=== PATIENT | male | born 1970 | race Caucasian/White ===

== ENCOUNTER → 2017-11-05 | Outpatient (CLI) | payer OTHER | LOC: LAB 11:58 → LAB SHORT 11:58 | DX: L60.2 Onychogryphosis (principal); B35.1 Tinea unguium | CPT/HCPCS: 87102 ==

== ENCOUNTER 2022-08-17 20:32 | Emergency (ER) | payer OTHER ==
[~2022-08-17] VITALS: Ht 177.8 cm; Wt 90.7 kg
[~2022-08-17 20:32] MED LIST: Norco 5-325 Ta1 EACH PO
[2022-08-18] MEDS ORDERED: MORP15ER PO (00:36)
[2022-08-18 00:52] VITALS: BP 185/11
== END 2022-08-18 00:53 | disposition home or self-care (01) ==
LOC: ER 20:32
DX: T23.221D Burn of second degree of single right finger (nail) except thumb, subsequent encounter (principal); T23.202D Burn of second degree of left hand, unspecified site, subsequent encounter; T23.201D Burn of second degree of right hand, unspecified site, subsequent encounter; X08.8XXD Exposure to other specified smoke, fire and flames, subsequent encounter; F17.210 Nicotine dependence, cigarettes, uncomplicated
CPT/HCPCS: A9270; J1885

== ENCOUNTER 2022-11-30 05:07 | Inpatient (IN) | payer OTHER ==
[~2022-11-30] VITALS: Ht 177.8 cm; Wt 93.9 kg
[~2022-11-30 05:07] MED LIST changes: +MORP15ER PO
[2022-11-30 05:32] LABS: BASOPHILS ABSOLUTE AUTO 0.07 K/mm3 (0.00-0.23); BASOPHILS PERCENT AUTO 1 % (0-2); EOSINOPHILS PERCENT AUTO 2 % (0-6); Hematocrit 46.5 % (37.0-53.0); IMMATURE GRAN ABSOLUTE AUTO 0.04 K/mm3 (0.00-0.10); IMMATURE GRAN PERCENT AUTO 0 % (0-1); LYMPHOCYTES ABSOLUTE AUTO 3.21 K/mm3 (0.84-5.20); LYMPHOCYTES PERCENT AUTO 24 % (21-46); MONOCYTES ABSOLUTE AUTO 0.71 K/mm3 (0.16-1.47); MONOCYTES PERCENT AUTO 5 % (4-13); Mean Corpuscular HGB 30.8 pg (26.0-34.0); Mean Corpuscular HGB Conc 34.4 g/dL (31.5-36.5); Mean Corpuscular Volume 90 fL (80-100); Mean Platelet Volume 10.5 fL (9.1-12.4); NEUTROPHILS ABSOLUTE AUTO 9.19 K/mm3 (1.96-9.15); NEUTROPHILS PERCENT AUTO 69 % (41-73); Platelet Count 243 K/mm3 (150-400); RDW Coefficient Variation 12.5 % (11.7-14.2); RDW Standard Deviation 41.1 fL (35.1-46.3); Red Blood Cell Count 5.19 M/mm3 (4.30-5.90); White Blood Cell Count 13.42 K/mm3 (4.00-11.30)
[2022-11-30 05:50] LABS: Albumin, Blood 3.2 g/dL (3.4-5.0); Bilirubin, Total 0.6 mg/dL (0.1-1.0); Bun/Creatinine Ratio 15.2 (12.0-20.0); Calcium, Blood 8.8 mg/dL (8.5-10.1); Creatinine, Blood 0.86 mg/dL (0.60-1.20); Globulin, Blood 3.1 g/dL (2.2-4.0); Total Protein, Blood 6.3 g/dL (6.4-8.2)
[2022-11-30 10:24] LABS: Anti-Xa UFH, PHA Monitoring <0.10 IU/mL; Prothrombin Time Results 11.5 Sec (9.7-11.5)
[2022-11-30 12:10] LABS: U Amphetamine Screen DETECTED; U Barbituate Screen Not Detected; U Benzodiazapine Screen Not Detected; U Buprenorphine Screen Not Detected; U Cannabinoids Screen Not Detected; U Cocaine Screen Not Detected; U Methadone Screen Not Detected; U Methamphetamine Screen DETECTED; U Opiates Screen Not Detected; U Oxycodone Screen Not Detected; U Phencyclidine Screen Not Detected; U Propoxyphene Screen Not Detected
[2022-11-30 13:48] VITALS: BP 152/136
[2022-11-30 14:00] VITALS: BP 162/107
--- NOTE | 2022-11-30 14:06 | NUR ---
LATE ENTRY/ER ADMIT 1000: RECEIVED REPORT FROM BRIAN DOWNS. 1010: RECEIVED PT FROM ER VIA [facility]. PT PLACED SELF IN BED. PUT ON TELE/MONITOR. VSS. A&O X 4. PT GROGGY, IS AROUSABLE YET UNABLE TO REMAIN AWAKE TO ANSWER ADMIT QUESTIONS. HEP GTT STARTED, IV LASIX GIVEN, NICOTENE PATCH APPLIED PER MD ORDERS. GOOD EFFECT FROM LASIX. 1405: IV LOPRESSOR GIVEN FOR SUSTAINED HR >120. HE DOWN TO 80'S AFTER GIVEN.
[2022-11-30 14:26] VITALS: BP 136/100
[2022-11-30 16:34] VITALS: BP 149/115
--- NOTE | 2022-11-30 18:33 | NUR ---
SHIFT SUMMARY PT HAS RESTED MAJORITY OF SHIFT WITH EYES CLOSED, RESP EVEN THOUGH SOMEWHAT RAPID. O2 2 L'S VIA N/C, SATS REMAIN >90%. PT AROUSABLE THOUGH UNABLE TO REMAIN AWAKE. TOX SCREEN CAME BACK + FOR METH. WAS ABLE TO WAKE UP FOR DINNER, SAT ON EDGE OF BED TO EAT. APPETITE IS GOOD. ECHO WAS DONE TODAY. NO REPORT ON CHART OF YET. HEP GTT INFUSING PER EMAR. PT REMAINS IN A.FLUTTER WITH HR 90-100'S. PT REPORTS HE WANTS TO SNEAK AWAY TO GO SMOKE. PT EDUCATED ON IGNITION SOURCES AND RISK OF FIRE & INJURY WHEN O2 IS IN USE. PT REPORTS UNDERSTANDING. NICOTENE PATCH APPLIED EARLIER TODAY. PT'S MOM AND PT'S SON VISITING AT BEDSIDE. CALL LIGHT WITHIN REACH, BED IN LOW POSITION.
[2022-11-30 20:39] VITALS: BP 159/98
[2022-11-30 23:59] VITALS: BP 169/123
[2022-12-01 00:20] VITALS: BP 143/99
[2022-12-01 00:28] LABS: BASOPHILS PERCENT AUTO 1 % (0-2); EOSINOPHILS ABSOLUTE AUTO 0.26 K/mm3 (0.00-0.68); EOSINOPHILS PERCENT AUTO 2 % (0-6); Hematocrit 44.5 % (37.0-53.0); Hemoglobin 15.2 g/dL (13.5-17.5); IMMATURE GRAN ABSOLUTE AUTO 0.02 K/mm3 (0.00-0.10); IMMATURE GRAN PERCENT AUTO 0 % (0-1); LYMPHOCYTES ABSOLUTE AUTO 4.34 K/mm3 (0.84-5.20); LYMPHOCYTES PERCENT AUTO 35 % (21-46); MONOCYTES ABSOLUTE AUTO 0.64 K/mm3 (0.16-1.47); MONOCYTES PERCENT AUTO 5 % (4-13); Mean Corpuscular HGB 30.6 pg (26.0-34.0); Mean Corpuscular HGB Conc 34.2 g/dL (31.5-36.5); Mean Corpuscular Volume 90 fL (80-100); Mean Platelet Volume 10.6 fL (9.1-12.4); NEUTROPHILS ABSOLUTE AUTO 7.06 K/mm3 (1.96-9.15); NEUTROPHILS PERCENT AUTO 57 % (41-73); Platelet Count 236 K/mm3 (150-400); RDW Coefficient Variation 12.8 % (11.7-14.2); RDW Standard Deviation 41.6 fL (35.1-46.3); Red Blood Cell Count 4.97 M/mm3 (4.30-5.90); White Blood Cell Count 12.42 K/mm3 (4.00-11.30)
[2022-12-01 00:45] LABS: Anion Gap 5 mmol/L (6-16); Blood Urea Nitrogen 20 mg/dL (8-24); Bun/Creatinine Ratio 20.2 (12.0-20.0); CO2, Blood 29 mmol/L (21-32); Chloride, Blood 104 mmol/L (98-108); Creatinine, Blood 0.99 mg/dL (0.60-1.20); Glomerular Filtration Rate 92 (60-); Glucose, Blood 176 mg/dL (70-99); Phosphorus, Blood 3.9 mg/dL (2.5-4.9); Potassium, Blood 3.8 mmol/L (3.5-5.5); Sodium, Blood 138 mmol/L (136-145)
--- NOTE | 2022-12-01 01:13 | NUR ---
INCREASED SOB PT COMPLAINING OF SOB THIS AM, PT HAS FINE CRACKLES IN LLL, WITH NO CHANGE SINCE PREVIOUS ASSESSMENT. PT SATS ABOVE 92 % ON RA, PT WEARS 2L O2 AT NOC PRN. PLACED O2 AND INCREASED TO 3L TO SEE IF THAT WOULD HELP MAKE BREATHING EASIER. DESPITE THESE INTERVENTIONS PT CONTINUES TO COMPLAIN OF SOB, AND IS SITTING UP ON THE EDGE OF THE BED. PT RECEIVED 40 MG OF LASIKS IN THE AM, AND HAS A TOTAL URINE OUTPUT OF OVER 3000. DR. CAMACHO CALLED AND NOTIFIED OF INCREASED SOB, 10 MG IV LASIKS ORDERED. [employer]IM[employer]U SHEPPARD.
[2022-12-01 03:40] VITALS: BP 130/114
--- NOTE | 2022-12-01 06:05 | NUR ---
SHIFT SUMMARY PT HAS RESTED OFF AND ON T/O THE SHIFT, PT REPORTS DIFFICULTY SLEEPING D/T SOB. PROIVDER NOTIFIED OF PT COMPLAINTS OF SOB THIS SHIFT AND 1X ORDER OF 10MG IV LASIKS GIVEN. PT HAS BEEN VOIDING ADEQUATELY. PT WEARS 2L O2 OFF AND ON FOR SOB, INCREASED TO 3L FOR ADDITIONAL COMFORT BUT PT REPORTS THAT HE PREFERS O2 AT 2L. PT TAKES OXYGEN OFF FREQUENTLY. SATS WNL ON RA. HEPARIN GTT INFUSING. A LITTLE AFTER MIDNIGHT PT HR TRENDED ABOVE 120 AND HE WAS SUSTAINING, MEDICATED WITH IV LOPRESSOR. PT HYPERTENSIVE, LOPRESSOR LOWERED BP ALSO. NO OTHER CHANGES TO REPORT. BED IN LOWEST POSITON, CALL LIGHT WITHIIN REACH.
[2022-12-01 08:48] VITALS: BP 156/125
[2022-12-01 11:09] VITALS: BP 136/98
[2022-12-01 16:51] VITALS: BP 137/100
[2022-12-01 20:45] VITALS: BP 146/106
[2022-12-02 00:12] VITALS: BP 145/112
[2022-12-02 03:57] LABS: BASOPHILS ABSOLUTE AUTO 0.06 K/mm3 (0.00-0.23); BASOPHILS PERCENT AUTO 1 % (0-2); EOSINOPHILS ABSOLUTE AUTO 0.24 K/mm3 (0.00-0.68); EOSINOPHILS PERCENT AUTO 2 % (0-6); Hematocrit 44.8 % (37.0-53.0); Hemoglobin 15.1 g/dL (13.5-17.5); IMMATURE GRAN ABSOLUTE AUTO 0.03 K/mm3 (0.00-0.10); IMMATURE GRAN PERCENT AUTO 0 % (0-1); LYMPHOCYTES ABSOLUTE AUTO 3.71 K/mm3 (0.84-5.20); LYMPHOCYTES PERCENT AUTO 30 % (21-46); MONOCYTES ABSOLUTE AUTO 0.62 K/mm3 (0.16-1.47); MONOCYTES PERCENT AUTO 5 % (4-13); Mean Corpuscular HGB 30.4 pg (26.0-34.0); Mean Corpuscular HGB Conc 33.7 g/dL (31.5-36.5); Mean Corpuscular Volume 90 fL (80-100); Mean Platelet Volume 11.1 fL (9.1-12.4); NEUTROPHILS ABSOLUTE AUTO 7.61 K/mm3 (1.96-9.15); NEUTROPHILS PERCENT AUTO 62 % (41-73); Platelet Count 212 K/mm3 (150-400); RDW Coefficient Variation 12.7 % (11.7-14.2); Red Blood Cell Count 4.96 M/mm3 (4.30-5.90); White Blood Cell Count 12.27 K/mm3 (4.00-11.30)
[2022-12-02 04:14] LABS: Albumin, Blood 2.9 g/dL (3.4-5.0); Anion Gap 4 mmol/L (6-16); Blood Urea Nitrogen 22 mg/dL (8-24); Bun/Creatinine Ratio 25.7 (12.0-20.0); CO2, Blood 30 mmol/L (21-32); Calcium, Blood 8.9 mg/dL (8.5-10.1); Chloride, Blood 102 mmol/L (98-108); Creatinine, Blood 0.86 mg/dL (0.60-1.20); Glomerular Filtration Rate 105 (60-); Glucose, Blood 295 mg/dL (70-99); Phosphorus, Blood 3.8 mg/dL (2.5-4.9); Potassium, Blood 3.8 mmol/L (3.5-5.5); Sodium, Blood 136 mmol/L (136-145)
[2022-12-02 04:30] VITALS: BP 139/95
--- NOTE | 2022-12-02 06:13 | NUR ---
End of shift note. Pt has been resting much of this shift. Pt reports that he has not slept well but each time RN checks on Pt he seems to be comfortable and resting. VSS. Hep gtt infusing. has been at bedside all shift. Pt is able to make needs known, call light is within reach.
[2022-12-02 08:28] VITALS: BP 163/115
[2022-12-02 11:49] VITALS: BP 147/106
[2022-12-02] MEDS ORDERED: ELIQUIS5 M2 PO (14:13)
[2022-12-02] MEDS ORDERED: BASAGLAR K100 UNIT/1 SC (14:14)
[2022-12-02] MEDS ORDERED: LISI5 PO (14:14)
[2022-12-02] MEDS ORDERED: TOPROL XL50 M1 PO (14:15)
[2022-12-02] MEDS ORDERED: NICODERM CQ TOP (14:16)
[2022-12-02] MEDS ORDERED: METF500 PO (14:16)
[2022-12-02] MEDS ORDERED: FURO40 PO (14:16)
--- NOTE | 2022-12-02 15:35 | NUR ---
UPDATE DISCHARGE ORDERS IN PLACE. DC INSTRUCTIONS GONE OVER WITH PT. PT EDUCATED ON ALL NEW MEDICATIONS AND DIAGNOSIS. PT PROVIDED EXTENSIVE DIABETIC EDUCATION AND HOW TO CHECK BLOOD SUGAR ALONG WITH ADMINISTER INSULIN. SMOKING CESSATION PROVIDED. ALL QUESTIONS ANSWERED. BOTH IV REMOVED WITHOUT COMPLICATIONS. SPOUSE AT BEDSIDE DURING EDUCATION. PT TAKEN OUT BY TRANG
== END 2022-12-02 15:28 | disposition home or self-care (01) | DRG 309 ==
LOC: ER 05:07 → PCU 09:15
PROVIDERS: Emergency Medicine; ADMIT Family Medicine
DX: I48.92 Unspecified atrial flutter (principal); I24.8 Other forms of acute ischemic heart disease; I50.20 Unspecified systolic (congestive) heart failure; I42.7 Cardiomyopathy due to drug and external agent; I11.0 Hypertensive heart disease with heart failure; E66.9 Obesity, unspecified; D72.828 Other elevated white blood cell count; T43.621A Poisoning by amphetamines, accidental (unintentional), initial encounter; F17.210 Nicotine dependence, cigarettes, uncomplicated; F15.10 Other stimulant abuse, uncomplicated; E11.65 Type 2 diabetes mellitus with hyperglycemia; X58.XXXA Exposure to other specified factors, initial encounter; Z79.891 Long term (current) use of opiate analgesic; Z98.890 Other specified postprocedural states; Z68.29 Body mass index [BMI] 29.0-29.9, adult; Z71.6 Tobacco abuse counseling
CPT/HCPCS: 36415; 71046; 71260; 78452; 80053; 80069; 82947; 83036; 83735; 83880; 84443; 84484; 85025; 85520; 85610; 85730; 93005; 93010; 93017; 94760; 94762; 96374-59; 96376-59; 99285-25; A9270; A9500; C8929; J0280; J1644; J1815; J1940; J2785; Q9957; Q9967

== ENCOUNTER 2023-01-28 08:48 | Day surgery (SDC) | payer OTHER ==
[~2023-01-28] VITALS: Ht 177.8 cm; Wt 79.5 kg
[2023-01-28] VITALS (17 sets, daily range): BP systolic 122–147; BP diastolic 82–103
[~2023-01-28 08:48] MED LIST changes: +BASAGLAR K100 UNIT/1 SC; +ELIQUIS5 M2 PO; +FURO40 PO; +LISI5 PO; +METF500 PO; +NICODERM CQ TOP; +TOPROL XL50 M1 PO
[2023-01-28] MEDS ORDERED: ATOR40TA PO (10:05)
[2023-01-28] MEDS ORDERED: ASCO500 PO (10:06)
[2023-01-28] MEDS ORDERED: Vitamin D1000 UNI1 PO (10:06)
--- NOTE | 2023-01-28 11:01 | NUR ---
PATIENT BROUGHT TO RECOVERY ROOM TO COMPLETE RECOVERY TIME. TRANSFERED ON THE MONITOR AND BED. FAMILY AT THE BEDSIDE, PATIENT WAKES TO VERBAL COMMANDS. VVS. NO PAIN NOTED FROM THE PATIENT.
--- NOTE | 2023-01-28 11:33 | NUR ---
PATIENT FULLY AWAKE, DR. GRIFFITH CAME TO THE BEDSIDE AND SPOKE WITH THE FAMILY, WITH PAITENT WILL FOLLOW UP IN THE OFFICE. POST EKG PERFORMED AND VERIFIED BY DR. GRIFFITH. PIV REMOVED AND PRESSURE DRESSING APPLIED. CATH TIP INTACT. REMOVED FROM THE MONITOR AND PATIENT DRESSED. ALL BELONGINGS GATHERED. REVIEWED DISCHARGE INSTRUCTIONS WITH THE PATIENT AND FAMILY. ALL QUESTIONS ANSWERED.
--- NOTE | 2023-01-28 12:08 | NUR ---
1145 PATIENT DISCHARGED HOME VIA WHEELCHAIR.
== END 2023-01-28 11:45 | disposition home or self-care (01) ==
LOC: MHTC 08:48
DX: I48.91 Unspecified atrial fibrillation (principal); I11.0 Hypertensive heart disease with heart failure; I50.812 Chronic right heart failure; E11.9 Type 2 diabetes mellitus without complications; Z79.01 Long term (current) use of anticoagulants; Z79.84 Long term (current) use of oral hypoglycemic drugs
CPT/HCPCS: 92960; 93005; 93010; 99152; J1200; J2250; J2310; J3010; J7030

== ENCOUNTER 2024-05-26 21:58 | Emergency (ER) | payer OTHER ==
[~2024-05-26] VITALS: Ht 177.8 cm; Wt 81.7 kg
[~2024-05-26 21:58] MED LIST changes: +ASCO500 PO; +ATOR40TA PO; +Vitamin D1000 UNI1 PO
[2024-05-26 22:26] LABS: BASOPHILS ABSOLUTE AUTO 0.06 K/mm3 (0.00-0.23); BASOPHILS PERCENT AUTO 1 % (0-2); EOSINOPHILS PERCENT AUTO 1 % (0-6); Hematocrit 41.9 % (37.0-53.0); Hemoglobin 14.3 g/dL (13.5-17.5); IMMATURE GRAN ABSOLUTE AUTO 0.02 K/mm3 (0.00-0.10); IMMATURE GRAN PERCENT AUTO 0 % (0-1); LYMPHOCYTES PERCENT AUTO 20 % (21-46); MONOCYTES ABSOLUTE AUTO 0.76 K/mm3 (0.16-1.47); MONOCYTES PERCENT AUTO 9 % (4-13); Mean Corpuscular HGB 30.8 pg (26.0-34.0); Mean Corpuscular HGB Conc 34.1 g/dL (31.5-36.5); Mean Corpuscular Volume 90 fL (80-100); Mean Platelet Volume 10.3 fL (9.1-12.4); NEUTROPHILS ABSOLUTE AUTO 5.95 K/mm3 (1.96-9.15); NEUTROPHILS PERCENT AUTO 69 % (41-73); Platelet Count 222 K/mm3 (150-400); RDW Coefficient Variation 12.6 % (11.7-14.2); RDW Standard Deviation 41.4 fL (35.1-46.3); Red Blood Cell Count 4.65 M/mm3 (4.30-5.90); White Blood Cell Count 8.59 K/mm3 (4.00-11.30)
[2024-05-26 22:55] LABS: International Normalized Ratio 1.09; Prothrombin Time Results 11.6 Sec (9.7-11.5)
[2024-05-26 22:57] LABS: Albumin, Blood 3.1 g/dL (3.4-5.0); Albumin/Globulin Ratio 0.9 (0.8-1.8); Bilirubin, Total 0.7 mg/dL (0.1-1.0); Bun/Creatinine Ratio 13.8 (12.0-20.0); Calcium, Blood 9.1 mg/dL (8.5-10.1); Creatinine, Blood 0.8 mg/dL (0.60-1.20); Globulin, Blood 3.5 g/dL (2.2-4.0); Total Protein, Blood 6.6 g/dL (6.4-8.2)
[2024-05-26] MEDS ORDERED: CefTRIAXone Sodium 1,000 MG in NS 50 ML IV ONE (23:10)
[2024-05-26] MEDS ORDERED: Azithromycin 500 MG in NS 250 ML IV ONE (23:10)
[2024-05-26] MEDS ORDERED: Ketorolac Tromethamine 30mg Vial IV ONE (23:10)
[2024-05-26] MEDS ORDERED: Acetaminophen 500 MG Tab PO ONE (23:10)
[2024-05-26] MEDS ORDERED: AZIT250 PO (23:37)
[2024-05-26 23:45] VITALS: BP 140/80
== END 2024-05-27 01:20 | disposition home or self-care (01) ==
LOC: ER 21:58
PROVIDERS: Emergency Medicine
DX: J18.9 Pneumonia, unspecified organism (principal); R07.89 Other chest pain; R73.9 Hyperglycemia, unspecified; F17.210 Nicotine dependence, cigarettes, uncomplicated; Z79.02 Long term (current) use of antithrombotics/antiplatelets; Z79.899 Other long term (current) drug therapy; Z79.84 Long term (current) use of oral hypoglycemic drugs; Z79.01 Long term (current) use of anticoagulants; Z79.4 Long term (current) use of insulin
CPT/HCPCS: 71046; 80053; 83690; 83880; 84484; 85025; 85610; 85730; 93005; 93010; 96365; 96366; 96368; 96375; 99285-25; A9270; J0456; J0696; J1885; J7050

== ENCOUNTER 2024-05-28 16:34 | Observation (INO) | payer OTHER ==
[~2024-05-28] VITALS: Ht 177.8 cm; Wt 81.7 kg
[~2024-05-28 16:34] MED LIST changes: +AZIT250 PO
[2024-05-28] MEDS ORDERED: Aspirin 325 MG Tab PO ONE (16:45)
[2024-05-28 17:03] LABS: BASOPHILS ABSOLUTE AUTO 0.06 K/mm3 (0.00-0.23); BASOPHILS PERCENT AUTO 1 % (0-2); EOSINOPHILS ABSOLUTE AUTO 0.14 K/mm3 (0.00-0.68); EOSINOPHILS PERCENT AUTO 2 % (0-6); Hematocrit 43.4 % (37.0-53.0); Hemoglobin 15.1 g/dL (13.5-17.5); IMMATURE GRAN ABSOLUTE AUTO 0.02 K/mm3 (0.00-0.10); IMMATURE GRAN PERCENT AUTO 0 % (0-1); LYMPHOCYTES ABSOLUTE AUTO 1.25 K/mm3 (0.84-5.20); LYMPHOCYTES PERCENT AUTO 15 % (21-46); MONOCYTES ABSOLUTE AUTO 0.68 K/mm3 (0.16-1.47); MONOCYTES PERCENT AUTO 8 % (4-13); Mean Corpuscular HGB 31.1 pg (26.0-34.0); Mean Corpuscular HGB Conc 34.8 g/dL (31.5-36.5); Mean Corpuscular Volume 90 fL (80-100); NEUTROPHILS ABSOLUTE AUTO 6.41 K/mm3 (1.96-9.15); NEUTROPHILS PERCENT AUTO 75 % (41-73); Platelet Count 243 K/mm3 (150-400); RDW Coefficient Variation 12.4 % (11.7-14.2); RDW Standard Deviation 40.9 fL (35.1-46.3); Red Blood Cell Count 4.85 M/mm3 (4.30-5.90); White Blood Cell Count 8.56 K/mm3 (4.00-11.30)
[2024-05-28 17:23] LABS: Albumin, Blood 3.1 g/dL (3.4-5.0); Albumin/Globulin Ratio 0.8 (0.8-1.8); Bilirubin, Total 0.9 mg/dL (0.1-1.0); Bun/Creatinine Ratio 22.9 (12.0-20.0); Creatinine, Blood 0.61 mg/dL (0.60-1.20); Globulin, Blood 3.8 g/dL (2.2-4.0); Potassium, Blood 4.1 mmol/L (3.5-5.5); Total Protein, Blood 6.9 g/dL (6.4-8.2)
[2024-05-28] MEDS ORDERED: Acetaminophen 325 MG TABLET PO PRN (22:00)
[2024-05-28] MEDS ORDERED: FLU VACC TS2024-25(6MOS UP)/PF 45 MCG/0.5 ML SYRINGE IM ONE (22:00)
[2024-05-28] MEDS ORDERED: Ondansetron 4 MG TAB PO PRN (22:05)
[2024-05-28] MEDS ORDERED: Nitroglycerin 0.4 MG SUBL SL PRN (22:05)
[2024-05-28] MEDS ORDERED: Nicotine 14 MG PATCH TOP PRN (22:05)
[2024-05-28] MEDS ORDERED: Morphine Sulfate 4 MG/1 ML Injection IV PRN (22:25)
[2024-05-28] MEDS ORDERED: TraZODone HCl 50 MG Tab PO PRN (22:25)
[2024-05-28] MEDS ORDERED: Insulin Glargine-Yfgn 100 Unit/mL 3 ML SYR SC SCH (23:00)
[2024-05-28 23:44] VITALS: BP 171/112
[2024-05-28 23:48] LABS: Influenza A, PCR NEGATIVE (NEGATIVE); Influenza B, PCR NEGATIVE (NEGATIVE); Resp Syncytial Virus, PCR NEGATIVE (NEGATIVE); SARS-Cov-2 (COVID-19) PCR, MMC NEGATIVE (NEGATIVE)
[2024-05-29 00:35] VITALS: BP 184/134
[2024-05-29 00:40] VITALS: BP 153/113
[2024-05-29] MEDS ORDERED: HydrALAZINE HCl 20 MG / ML 1ML Vial IV PRN (00:45)
[2024-05-29 02:06] VITALS: BP 186/116
[2024-05-29] MEDS ORDERED: Metoprolol Tartrate 1 MG/ML 5 ML VIAL IV ONE (02:15)
[2024-05-29 03:17] VITALS: BP 155/90
[2024-05-29 06:50] LABS: BASOPHILS ABSOLUTE AUTO 0.05 K/mm3 (0.00-0.23); BASOPHILS PERCENT AUTO 1 % (0-2); EOSINOPHILS ABSOLUTE AUTO 0.16 K/mm3 (0.00-0.68); EOSINOPHILS PERCENT AUTO 2 % (0-6); Hematocrit 44.3 % (37.0-53.0); Hemoglobin 15.2 g/dL (13.5-17.5); IMMATURE GRAN ABSOLUTE AUTO 0.02 K/mm3 (0.00-0.10); IMMATURE GRAN PERCENT AUTO 0 % (0-1); LYMPHOCYTES PERCENT AUTO 21 % (21-46); MONOCYTES ABSOLUTE AUTO 0.83 K/mm3 (0.16-1.47); MONOCYTES PERCENT AUTO 10 % (4-13); Mean Corpuscular HGB 30.9 pg (26.0-34.0); Mean Corpuscular HGB Conc 34.3 g/dL (31.5-36.5); Mean Corpuscular Volume 90 fL (80-100); NEUTROPHILS ABSOLUTE AUTO 5.71 K/mm3 (1.96-9.15); NEUTROPHILS PERCENT AUTO 67 % (41-73); Platelet Count 242 K/mm3 (150-400); RDW Coefficient Variation 12.2 % (11.7-14.2); RDW Standard Deviation 40.2 fL (35.1-46.3); Red Blood Cell Count 4.92 M/mm3 (4.30-5.90); White Blood Cell Count 8.57 K/mm3 (4.00-11.30)
[2024-05-29 07:24] VITALS: BP 148/97
[2024-05-29] MEDS ORDERED: Insulin Human Lispro 100 Units/ML 3ML Syringe SC SCH (07:30)
[2024-05-29 07:33] LABS: Alanine Aminotransfer (ALT/SGP 20 U/L (12-78); Albumin, Blood 3.1 g/dL (3.4-5.0); Albumin/Globulin Ratio 0.8 (0.8-1.8); Alk Phos 98 U/L (50-136); Anion Gap 11 mmol/L (3-11); Aspartate Aminotrans (AST/SGOT 13 U/L (12-37); Bilirubin, Total 0.7 mg/dL (0.1-1.0); Blood Urea Nitrogen 16 mg/dL (8-24); CHOL/HDL RATIO 4.1; CO2, Blood 25 mmol/L (21-32); Calcium, Blood 9.3 mg/dL (8.5-10.1); Chloride, Blood 104 mmol/L (98-108); Cholesterol 99 mg/dL (50-200); Globulin, Blood 3.7 g/dL (2.2-4.0); Glomerular Filtration Rate 110 (60-); Glucose, Blood 224 mg/dL (70-99); HDL Cholesterol 24 mg/dL (>39); LDL/HDL RATIO 2.4; Low Density Lipoprotein Chol 57 mg/dL (0-110); Magnesium, Blood 2.1 mg/dL (1.6-2.4); Potassium, Blood 3.9 mmol/L (3.5-5.5); Sodium, Blood 136 mmol/L (136-145); Total Protein, Blood 6.8 g/dL (6.4-8.2); Triglycerides 92 mg/dL (30-160); Very Low Density Lipoprot Chol 18 mg/dL (6-32)
[2024-05-29] MEDS ORDERED: Furosemide 40 MG Tab PO SCH (09:00)
[2024-05-29] MEDS ORDERED: Atorvastatin 40 MG Tab PO SCH (09:00)
[2024-05-29] MEDS ORDERED: Apixaban 5 MG Tab PO SCH (09:00)
[2024-05-29] MEDS ORDERED: Aspirin 81 MG Chew PO SCH (09:00)
[2024-05-29] MEDS ORDERED: Lisinopril 5 MG Tab PO SCH (09:00)
[2024-05-29] MEDS ORDERED: Metoprolol Succinate 50 MG TABCR PO SCH (09:00)
[2024-05-29] MEDS ORDERED: Empagliflozin 10 MG TAB PO SCH (09:00)
[2024-05-29] MEDS ORDERED: Cholecalciferol 1000 Unit Tablet (=25MCG) PO SCH (09:00)
[2024-05-29 11:56] VITALS: BP 132/83
--- NOTE | 2024-05-29 13:31 | NUR ---
NOTE: PATIENT HAS ORDERED FOR ECHO TODAY AND DISCHARGE HOME. [facility] AND SPOKE TO LOC. PER LOC THEY ARE NOT ABLE TO GET IT DONE TODAY D/T BEING SHORT HANDED AND THEY HAVE SICK CALL. NOTIFIED DR. PORTER REGARDING THIS ISSUE. PER DR. PORTER PATIENT CAN GO HOME AND REMIND HIM TO F/U c BURRER HAND IN A WEEK AND TO HAVE HIS ECHO DONE OUTPT. PATIENT UPDATED c THIS INFORMATION. PATIENT VERBALIZED UNDERSTANDING AND NO FURTHER QUESTIONS.
[2024-05-29] MEDS ORDERED: ASPI81CH PO (13:53)
[2024-05-29] MEDS ORDERED: FURO20 PO (13:53)
[2024-05-29] MEDS ORDERED: JARDIANCE10 MG PO (13:53)
[2024-05-29] MEDS ORDERED: BASAGLAR K100 UNIT/1 SC (13:54)
[2024-05-29] MEDS ORDERED: METO50ER PO (13:55)
--- NOTE | 2024-05-29 15:21 | NUR ---
SHIFT/DISCHARGE SUMMARY: PATIENT A/OX4, CALM, PLEASANT AND COOPERATIVE c CARE. PATIENT REPORTS CP 09/08, OFFERED PAIN MEDS BUT DECLINED. PER PATIENT, STATED "I HAVE BEEN SOBER FOR 2 YEARS, STOP USING METH, THEN 5 DAYS AGO, STARTED USING AGAIN. THEN AFTER THAT THIS CP STARTED." PATIENT EDUCATED ON METH USED. PATIENT VERBALIZED UNDERSTANDING STATED, "I TOTALLY UNDERSTAND AND I'M GOING TO TRY MY BEST TO NOT DOING IT AGAIN." PATIENT ON TELE, A-FLUTTER HR IN THE 80'S BPM. PATIENT RECEIVED SCHEDULED MEDS PER EMAR. VITAL SIGNS REVIEWED. PIV DC'D. PATIENT DISCHARGE HOME. DISCHARGE INSTRUCTIONS PACKET GIVEN TO PATIENT. PATIENT EDUCATED ON ADMITTING DX'S OF CP SECONDARY TO METH USED, TX, F/U c PCP EVENTS AND PROMOTIONS ASSISTANT AND TO HAVE ECHO DONE OUTPT. PATIENT VERBALIZED UNDERSTANDING AND NO FURTHER QUESTIONS. RX WAS FAXED TO PATIENT PERFERRED PHARMACY-[facility]. ALL PERSONAL BELONGINGS WERE SENT HOME c THE PATIENT. PATIENT LEFT THE ROOM AT 1510, TRANSPORTED VIA W/CHAIR BY EREN TO PATIENT ENTRANCE.
== END 2024-05-29 16:13 | disposition home or self-care (01) ==
LOC: ER 16:34 → MEDS 16:35
PROVIDERS: Student in an Organized Health Care Education/Training Program; ADMIT Student in an Organized Health Care Education/Training Program
DX: R07.89 Other chest pain (principal); E11.65 Type 2 diabetes mellitus with hyperglycemia; I11.0 Hypertensive heart disease with heart failure; I50.32 Chronic diastolic (congestive) heart failure; I44.7 Left bundle-branch block, unspecified; I48.92 Unspecified atrial flutter; I48.0 Paroxysmal atrial fibrillation; F15.10 Other stimulant abuse, uncomplicated; G47.33 Obstructive sleep apnea (adult) (pediatric); F17.210 Nicotine dependence, cigarettes, uncomplicated; Z91.148 Patient's other noncompliance with medication regimen for other reason; Z79.01 Long term (current) use of anticoagulants; Z79.4 Long term (current) use of insulin; Z79.84 Long term (current) use of oral hypoglycemic drugs; Z79.899 Other long term (current) drug therapy
CPT/HCPCS: 0241U; 36415; 71275; 74174; 80053; 80061; 82947; 83036; 83690; 83735; 84443; 84484; 85025; 93005; 93010; 96374; 96375; 99285-25; A9270; G0378; J0360; J1815; Q9967

== ENCOUNTER 2024-06-23 05:34 | Day surgery (SDC) | payer OTHER ==
[2024-06-23] VITALS (13 sets, daily range): BP systolic 110–160; BP diastolic 78–94
[~2024-06-23] VITALS: Ht 177.8 cm; Wt 91.0 kg
[~2024-06-23 05:34] MED LIST changes: +ASPI81CH PO; +FURO20 PO; +JARDIANCE10 MG PO; +METO50ER PO
[2024-06-23] MEDS ORDERED: propofoL 20 ML IV ONE (06:29)
[2024-06-23] MEDS ORDERED: POTA8 PO (06:33)
[2024-06-23] MEDS ORDERED: METF500C PO (06:34)
[2024-06-23] MEDS ORDERED: GLIP10 PO (06:34)
[2024-06-23] MEDS ORDERED: SPIR25 PO (06:35)
[2024-06-23] MEDS ORDERED: LOSA25 PO (06:35)
[2024-06-23] MEDS ORDERED: FentaNYL Citrate 50 MCG/ML 2 ML Injection ONE (07:35)
--- NOTE | 2024-06-23 07:35 | NUR ---
PT AWAKE AND CONVERSING APPROPRIATELY POST PROCEDRE, DENIES PAIN, VSS.
--- NOTE | 2024-06-23 07:49 | NUR ---
PT DRESSED SELF WITHOUT ISSUE, IV REMOVED-CANNULA INTACT. PT AND SPOUSE RECEIVED DISCHARGE INSTRUCTIONS, MED LIST AND AFTER CARE INSTRUCTIONS; VERBALIZED GOOD UNDERSTANDING. PT LEFT FACILITY VIA W/C, CONDITION STABLE.
== END 2024-06-23 08:02 | disposition home or self-care (01) ==
LOC: MHTC 05:34 → ORSCMMR 05:34 → MHTC 06:40 → ORSCMMR 07:00 → ORD 07:00 → MHTC 08:02 → ORSCMMR 08:02
DX: I48.92 Unspecified atrial flutter (principal); F15.10 Other stimulant abuse, uncomplicated; I11.0 Hypertensive heart disease with heart failure; I50.9 Heart failure, unspecified; E11.9 Type 2 diabetes mellitus without complications; F17.210 Nicotine dependence, cigarettes, uncomplicated; Z79.01 Long term (current) use of anticoagulants; Z79.4 Long term (current) use of insulin; Z79.84 Long term (current) use of oral hypoglycemic drugs; Z79.899 Other long term (current) drug therapy
CPT/HCPCS: 92960; 93005; 93010; J2704; J3010

== ENCOUNTER 2025-01-08 16:21 | Emergency (ER) | payer OTHER ==
[~2025-01-08] VITALS: Ht 175.3 cm; Wt 70.3 kg
[~2025-01-08 16:21] MED LIST changes: +GLIP10 PO; +LOSA25 PO; +METF500C PO; +POTA8 PO; +SPIR25 PO
[2025-01-08 16:25] VITALS: BP 210/141
[2025-01-08] MEDS ORDERED: OxyCODONE 7.5 mg/Acetam 325 mg TABLET PO ONE (16:30)
[2025-01-08] MEDS ORDERED: OXYACE7.5T PO (17:08)
[2025-01-08] MEDS ORDERED: LIDO700A20 TOP (17:09)
== END 2025-01-08 17:20 | disposition home or self-care (01) ==
LOC: ER 16:21
DX: S20.212A Contusion of left front wall of thorax, initial encounter (principal); S50.02XA Contusion of left elbow, initial encounter; W01.0XXA Fall on same level from slipping, tripping and stumbling without subsequent striking against object, initial encounter; F17.210 Nicotine dependence, cigarettes, uncomplicated
CPT/HCPCS: 71046; 73080; 99283-25; A9270